=== PATIENT | male | born 1960 | race African-American/Black ===

== ENCOUNTER 2016-09-16 20:42 | Emergency (ER) | payer MEDICAID ==
[~2016-09-16] VITALS: Ht 182.9 cm; Wt 105.0 kg
[~2016-09-16 20:42] MED LIST: BACT800T5 PO; CEPH500C3 PO
[2016-09-16 21:01] VITALS: BP 124/67; PULSE 99; RESP 18; TEMP 97.8; O2SAT 99
--- NOTE | 2016-09-16 22:43 | RADRPT ---
EXAM DATE/TIME: 09/16/2016 22:28 [place] COMPARISON: No previous studies available for comparison. INDICATIONS : Altered mental status, fall. RADIATION DOSE: 37.66 CTDIvol (mGy) MEDICAL HISTORY : Hypertension. Cerebrovascular disease. Diabetes mellitus type 2. SURGICAL HISTORY : None. ENCOUNTER: Initial ACUITY: 1 day PAIN SCALE: Non-responsive LOCATION: cranial TECHNIQUE: Multiple contiguous axial images were obtained of the head. Using automated exposure control and adj ustment of the mA and/or kV according to patient size, radiation dose was kept as low as reasonably a chievable to obtain optimal diagnostic quality images. FINDINGS: There is no evidence for intracranial hemorrhage, mass effect, mass lesions, or edema. The visualize d bony structures appear intact. Slight degree of brain atrophy is seen. Slight periventricular whit e matter changes are seen nonspecific mostly consistent with chronic small vessel ischemic changes. There are no signs of acute infarction for technique. CONCLUSION: Slight atrophic and small vessel ischemic changes without any evidence for acute hemorrhage or mass effect. Sena Blackwell MD on September 16, 2016 at 22:40 Board Certified Radiologist. This report was verified electronically.
--- NOTE | 2016-09-17 00:53 | PD ---
HPI Chief Complaint: Alcohol/Drug Intoxication Time Seen by Provider: 00:49 Travel History International Travel<30 days: No Contact w/Intl Traveler<30days: No Traveled to known affect area: No History of Present Illness HPI Patient is a 55-year-old male who comes in after a fall today. He admits to drinking 4 alcoholic beverages today. He says he slipped and fell and hit his head. He has no complaints at this time. He denies any headache, dizziness, nausea or vomiting. He denies any other injuries. He denies chest pain or shortness of breath. PFSH Past Medical History Medical History: Unable to Obtain Hx Anticoagulant Therapy: Yes Asthma: No Autoimmune Disease: No Anxiety: No Depression: No Cancer: No Cardiovascular Problems: No COPD: No Cerebrovascular Accident: Yes Diabetes: Yes Patient Takes Glucophage: No Diminished Hearing: No Endocrine: No Gastrointestinal Disorders: Yes Glaucoma: No Genitourinary: No Hypertension: Yes Musculoskeletal: No Neurologic: No Psychiatric: No Respiratory: No Sickle Cell Disease: No Sleep Apnea: No Thyroid Disease: No ?: Not Past Surgical History Surgical History: Unable to Obtain Pacemaker: Yes Social History Alcohol Use: Yes (8 16 OZ BEERS A DAY) Tobacco Use: Yes (2 PPD) Substance Use: No Allergies-Medications (Allergen,Severity, Reaction): Coded Allergies: No Known Allergies (Verified , 09/16/16) Reported Meds & Prescriptions Reported Meds & Active Scripts Active Bactrim DS (Sulfamethoxazole-Trimethoprim DS) 1 Tab Tab 1 Tab PO BID 10 Days Keflex (Cephalexin Monohydrate) 500 Mg Cap 500 Mg PO QID 10 Days Review of Systems Except as stated in HPI: all other systems reviewed are Neg General / Constitutional: No: Fever, Chills HENT: No: Headaches, Lightheadedness Cardiovascular: No: Chest Pain or Discomfort Respiratory: No: Shortness of Breath Gastrointestinal: No: Nausea, Vomiting Genitourinary: No: Dysuria Musculoskeletal: No: Limited ROM, Pain Skin: No Rash, No Change in Pigmentation Neurologic: No: Weakness, Dizziness Physical Exam Narrative GENERAL: Awake and alert, alcohol on breath. SKIN: Warm and dry. HEAD: Atraumatic. Normocephalic. EYES: Pupils equal and round. No scleral icterus. Extraocular movements intact. ENT: Mucous membranes pink and moist. NECK: Trachea midline. No JVD. No cervical spine tenderness. CARDIOVASCULAR: Regular rate and rhythm. No murmur appreciated. RESPIRATORY: No accessory muscle use. Clear to auscultation. Breath sounds equal bilaterally. GASTROINTESTINAL: Abdomen soft, non-tender, nondistended. MUSCULOSKELETAL: No obvious deformities. No clubbing. No cyanosis. No edema. NEUROLOGICAL: Awake and alert. No obvious cranial nerve deficits. Motor grossly within normal limits. PSYCHIATRIC: Appropriate mood and affect; insight and judgment normal. Data Data Last Documented VS Vital Signs Date Time Temp Pulse Resp B/P Pulse Ox O2 Delivery O2 Flow Rate FiO2 09/16/16 21:01 97.8 99 18 124/[address] Brain W/O Iv Contrast(Rout) (09/16/16 ) [facility] Medical Decision Making Medical Screen Exam Complete: Yes Emergency Medical Condition: Yes Medical Record Reviewed: Yes Differential Diagnosis Intoxication versus fall versus head injury Narrative Course Patient is a 55-year-old male who comes in after a fall today. He admits to drinking tonight. He drinks most days. He has no complaints at this time. CT of the head was performed, shows no acute abnormalities. There are no obvious signs of trauma anywhere. Patient does smell like alcohol. He is observed in the emergency Department until clinically sober. Once clinically sober, patient discharged home. Advised to avoid alcohol use. Advised to return to the ED as needed for any worsening symptoms. Diagnosis Primary Impression: Alcohol intoxication Qualified Code: F10.120 - Alcohol intoxication, uncomplicated Patient Instructions: General Instructions Additional Instructions: Avoid alcohol use. Follow up with a primary care physician. Return to the ED as needed for any worsening symptoms. Disposition: 01 DISCHARGE HOME Condition: Stable Mikaela Freeman MD Sep 17, 2016 00:53
== END 2016-09-17 03:13 | disposition home or self-care (01) ==
LOC: NEDAMB 20:42
DX: F10.120 Alcohol abuse with intoxication, uncomplicated (principal); S09.90XA Unspecified injury of head, initial encounter; W01.0XXA Fall on same level from slipping, tripping and stumbling without subsequent striking against object, initial encounter
CPT/HCPCS: 70450